=== PATIENT | male | born 1955 | race Caucasian/White ===

== ENCOUNTER 2021-04-29 15:47 | Outpatient (CLI) | payer BC ==
[2021-04-29 21:13] LABS: #Basophils 0.1 10x3/uL (0.0-0.2); #Eosinphils 0.2 10x3/uL (0.0-0.5); #Monocytes 0.8 10x3/uL (0.0-1.1); #Neutrophils 6.4 10x3/uL (1.5-8.4); %Eosinophils 2.4 % (0.0-6.0); %Lymphocytes 22.5 % (18.0-47.0); %Monocytes 8.2 % (0.0-10.0); %Neutrophils 65.4 % (40.0-75.0); Hemoglobin 16.2 g/dL (13.5-17.5); Mean Corpuscular HGB CONC 33.9 g/dL (32.0-36.0); Mean Corpuscular Hemoglobin 30.3 pg (27.0-33.0); Mean Corpuscular Volume 89.3 fl (81.2-95.1); Mean Platelet Volume 11.7 fl (7.4-10.4); Platelet Count 208 10x3/uL (150-450); RBC Distribution Width 13.4 % (11.5-14.5); Red Blood Cell (RBC) Count 5.35 10x6/uL (4.32-5.72); White Blood Cell (WBC) Count 9.9 10x3/uL (3.5-10.5)
[2021-04-29 21:16] LABS: Anion Gap 17 mmol/L (10-20); BUN (Urea Nitrogen) 22 mg/dL (8.4-25.7); Calc. Creatinine Clearance 0 mL/min (70-130); Calcium 10.1 mg/dL (7.8-10.44); Carbon Dioxide 24 mmol/L (23-31); Chloride 106 mmol/L (98-107); Glucose 111 mg/dL (80-115); Sodium 143 mmol/L (136-145)
[2021-04-30 21:37] LABS: SARS-CoV-2 PCR by NAA Not Detected (NotDetected)
== END 2021-04-29 15:48 | disposition home or self-care (01) ==
LOC: LABBT 15:47
PROVIDERS: ATTEND Surgery
DX: Z01.818 Encounter for other preprocedural examination (principal); K43.9 Ventral hernia without obstruction or gangrene; Z20.822 Contact with and (suspected) exposure to COVID-19
CPT/HCPCS: 80048; 85025; 93005; 93010; U0003; U0005

== ENCOUNTER 2021-05-03 05:42 | Day surgery (SDC) | payer BC ==
[2021-04-28 11:18] VITALS: BMI 39.5
[2021-05-03] MEDS ORDERED: Fentanyl 250 MCG/5 ML VIAL ONE (06:40)
[2021-05-03] MEDS ORDERED: Bupivacaine 0.25% HCL 30 ML VIAL ONE (06:45)
[2021-05-03] MEDS ORDERED: Lidocaine 1% w/Epinephrine 1:100K 30 ML VIAL ONE (06:45)
[2021-05-03] MEDS ORDERED: Lidocaine 2% Jelly 5 ML TUBE ONE (07:03)
[2021-05-03] MEDS ORDERED: Lidocaine 1% PF 5 ML VIAL ONE (08:00)
[2021-05-03] MEDS ORDERED: Ketorolac Tromethamine 30 MG/ML VIAL ONE (08:00)
[2021-05-03] MEDS ORDERED: Ondansetron PF 4 MG/2 ML Vial ONE (08:00)
[2021-05-03] MEDS ORDERED: Rocuronium Bromide 10 MG/ML (10ML VIAL) ONE (08:00)
[2021-05-03] MEDS ORDERED: PROPOFOL 200 MG/20 ML VIAL ONE (08:00)
[2021-05-03] MEDS ORDERED: Dexamethasone 20 MG/5 ML VIAL ONE (08:00)
[2021-05-03] MEDS ORDERED: SUGAMMADEX SODIUM 200 MG/2 ML VIAL ONE (08:50)
[2021-05-03] MEDS ORDERED: Fentanyl 100 MCG/2 ML VIAL ONE ×2 (09:25→09:43)
[2021-05-03] MEDS ORDERED: HYDROcodone/Acetaminophen 5/325 mg Tablet ONE (11:30)
== END 2021-05-03 12:10 | disposition home or self-care (01) ==
LOC: SDC 05:42
PROVIDERS: ATTEND Surgery
PROC: 0WUF4JZ Supplement Abdominal Wall with Synthetic Substitute, Percutaneous Endoscopic Approach (ICD-10-PCS; principal; 2021-05-03)
DX: K43.9 Ventral hernia without obstruction or gangrene (principal); I10 Essential (primary) hypertension; E78.5 Hyperlipidemia, unspecified; J45.909 Unspecified asthma, uncomplicated; M19.90 Unspecified osteoarthritis, unspecified site; E78.00 Pure hypercholesterolemia, unspecified; E66.9 Obesity, unspecified; Z68.39 Body mass index [BMI] 39.0-39.9, adult; Z87.891 Personal history of nicotine dependence; Z79.899 Other long term (current) drug therapy
CPT/HCPCS: C1781; J0690; J1100; J1885; J2405; J2704; J3010; S0020

== ENCOUNTER 2021-11-03 12:40 | Outpatient (CLI) | payer BC | END 2021-11-03 12:41 | disposition home or self-care (01) | LOC: SCSRAD 12:40 | PROVIDERS: ATTEND Family Medicine | DX: M47.26 Other spondylosis with radiculopathy, lumbar region (principal); M43.16 Spondylolisthesis, lumbar region | CPT/HCPCS: 72120 ==

== ENCOUNTER 2022-11-03 08:39 | Outpatient (CLI) | payer BC, MEDICARE | END 2022-11-03 08:40 | disposition home or self-care (01) | LOC: SCSMRI 08:39 | PROVIDERS: ATTEND Family Medicine | DX: M54.2 Cervicalgia (principal); M47.812 Spondylosis without myelopathy or radiculopathy, cervical region | CPT/HCPCS: 72052 ==

== ENCOUNTER 2023-06-12 09:56 | Outpatient (CLI) | payer MEDICARE | END 2023-06-12 09:57 | disposition home or self-care (01) | LOC: SCSRAD 09:56 | PROVIDERS: ATTEND Nurse Practitioner Family | DX: M25.561 Pain in right knee (principal); M25.532 Pain in left wrist; M25.562 Pain in left knee; M17.0 Bilateral primary osteoarthritis of knee; M25.462 Effusion, left knee; M89.8X3 Other specified disorders of bone, forearm; M89.8X4 Other specified disorders of bone, hand; M25.832 Other specified joint disorders, left wrist ==

== ENCOUNTER 2023-10-08 05:07 | Inpatient (IN) | payer BC, MEDICARE ==
[2023-10-08] MEDS ORDERED: Acetaminophen 500 MG TAB ONE (06:32)
[2023-10-08 06:57] LABS: #Eosinphils 0.2 thou/uL (0.0-0.7); #Neutrophils 6.4 thou/uL (1.40-6.50); %Basophils 0.5 % (0.0-1.0); %Eosinophils 1.7 % (0.0-10.0); %Lymphocytes 14.7 % (21.0-51.0); %Neutrophils 71.8 % (42.0-75.0); Hematocrit 47.5 % (42.0-52.0); Hemoglobin 15.9 g/dL (14.0-18.0); Mean Corpuscular HGB CONC 33.5 g/dL (32.0-36.0); Mean Corpuscular Hemoglobin 29.8 pg (27.0-31.0); Mean Platelet Volume 10.4 fL (7.4-10.4); Platelet Count 151 10x3/uL (130-400); RBC Distribution Width 13.2 % (11.5-14.5); Red Blood Cell (RBC) Count 5.34 mill/uL (4.70-6.10); White Blood Cell (WBC) Count 8.9 10x3/uL (4.8-10.8)
[2023-10-08 07:23] LABS: ALT (SGPT) 26 U/L (8-55); AST (SGOT) 24 U/L (5-34); Albumin 3.9 g/dL (3.4-4.8); Alkaline Phosphatase 81 U/L (40-110); Anion Gap 9 mmol/L (10-20); BUN (Urea Nitrogen) 16 mg/dL (8.4-25.7); Bilirubin, Total 1.1 mg/dL (0.2-1.2); Calc. Creatinine Clearance 0 mL/min (70-130); Calcium 9.1 mg/dL (7.8-10.44); Carbon Dioxide 27 mmol/L (23-31); Chloride 104 mmol/L (98-107); Estimated GFR 95; Globulin 2.3 g/dL (2.4-3.5); Glucose 166 mg/dL (80-115); Lipase 18 U/L (8-78); Magnesium 1.9 mg/dL (1.6-2.6); Potassium 3.7 mmol/L (3.5-5.1); Protein, Total 6.2 g/dL (5.8-8.1); Sodium 136 mmol/L (136-145)
[2023-10-08 07:26] LABS: Troponin I Less than 0.010 ng/mL (< 0.028)
[2023-10-08] MEDS ORDERED: Ondansetron PF 4 MG/2 ML Vial IVP PRN (09:51)
[2023-10-08] MEDS ORDERED: Ondansetron ODT 4 MG TAB PO PRN (09:51)
[2023-10-08] MEDS ORDERED: Acetaminophen 325 MG TAB PO PRN (09:52)
[2023-10-08 10:31] VITALS: BMI 39.5
[2023-10-08] MEDS ORDERED: Iopamidol-370 76% 500 ML MDV (1 ML CHARGE) ONE (10:48)
[2023-10-08] MEDS: Lidocaine 4% Patch TD SCH (11:13)
[2023-10-08] MEDS: Morphine 4 MG/ML VIAL SLOW IVP PRN ×2 (11:47→20:58)
[2023-10-08] MEDS ORDERED: Albuterol 200 PUFF (6.7GM INHALER) INH PRN (17:42)
[2023-10-08] MEDS: Transdermal Patch Removal TOP SCH (23:16)
[2023-10-09] MEDS: lamoTRIgine 100 MG TAB PO SCH (08:36)
[2023-10-09] MEDS: Lisinopril 10 MG TAB PO SCH (08:36)
[2023-10-09] MEDS: Rosuvastatin 20 MG TAB PO SCH (08:37)
[2023-10-09] MEDS ORDERED: traMADol HCl 50 MG TAB PO PRN (11:05)
[2023-10-09] MEDS ORDERED: Cyclobenzaprine 10 MG TAB PO PRN (11:06)
[2023-10-09] MEDS: Acetaminophen 500 MG TAB PO SCH (12:09)
[2023-10-09] MEDS: traMADol HCl 50 MG TAB PO SCH (12:10)
[2023-10-09 15:46] VITALS: BP 113/71; TEMP 98
== END 2023-10-09 16:49 | disposition home or self-care (01) | DRG 183 ==
LOC: ERS 05:07 → SURG A 08:41
PROVIDERS: ADMIT Surgery; ATTEND Surgery
DX: S22.41XA Multiple fractures of ribs, right side, initial encounter for closed fracture (principal); S27.2XXA Traumatic hemopneumothorax, initial encounter; W18.30XA Fall on same level, unspecified, initial encounter; Z79.899 Other long term (current) drug therapy; E78.5 Hyperlipidemia, unspecified; I10 Essential (primary) hypertension; M19.90 Unspecified osteoarthritis, unspecified site; Z98.890 Other specified postprocedural states; F31.9 Bipolar disorder, unspecified
CPT/HCPCS: 71045; 71260; 80053; 83690; 83735; 83880; 84484; 85025; 93005; J2270; Q9967